=== PATIENT | female | born 1970 | race African-American/Black ===

== ENCOUNTER 2017-09-17 12:48 | Inpatient (IN) ==
[2017-09-17] MEDS ORDERED: hydrALAZINE 20 MG/1 ML VIAL ONE (13:02)
[2017-09-17] MEDS ORDERED: ONDANSETRON 4 MG/2 ML VIAL IV STA (13:04)
[2017-09-17] MEDS ORDERED: METOCLOPRAMIDE 10 MG/2 ML VIAL IV STA (13:04)
[2017-09-17] MEDS ORDERED: INSULIN REGULAR 100 UNIT/ML IV STA (13:04)
[2017-09-17] MEDS ORDERED: SODIUM CHLORIDE 0.9% 2,000 ML IV STA (13:04)
[2017-09-17] MEDS ORDERED: ONDANSETRON 4 MG/2 ML VIAL ONE (13:05)
[2017-09-17] MEDS ORDERED: METOCLOPRAMIDE 10 MG/2 ML VIAL ONE (13:05)
[2017-09-17] MEDS ORDERED: hydrALAZINE 20 MG/1 ML VIAL IV STA (13:13)
[2017-09-17 13:24] LABS: Basophils # 0.1 10*3/uL (0.0-0.2); Basophils % 0.6 % (0.0-0.8); Eosinophils # 0.1 10*3/uL (0.0-0.87); Eosinophils % 0.4 % (0.00-10.9); Hematocrit 33.8 VOL% (35.7-47.0); Hemoglobin 11.8 GM/DL (12.0-16.0); Immature Granulocytes % 0.3 %; Immature Granulocytes Absolute 0.04 #; Lymphocytes # 1.4 10*3/uL (1.4-4.0); Lymphocytes % 10.7 % (21.3-54.2); Mean Corpuscular HGB Conc 34.9 GM/DL (32-36); Mean Corpuscular Hemoglobin 27 PG (27-34); Mean Corpuscular Volume 78.4 FL (87-102); Mean Platelet Volume 12.2 FL (9.6-12.0); Monocytes # 0.4 10*3/uL (0.11-0.8); Monocytes % 3.1 % (1.7-12.7); Neutrophils # 11.3 10*3/uL (1.4-7.4); Neutrophils % 84.9 % (38.7-73.9); Platelet Count 265 T/CUMM (130-400); Red Blood Count 4.31 MC/CUMM (3.8-5.5); Red Cell Distribution Width 12.9 % (9.3-17.3); White Blood Count 13.4 T/CUMM (4-12)
[2017-09-17 13:32] LABS: INR 0.9; PT Patient Result 9.5 SECS; Partial Thromboplastin Time 26.2 SECS (0-40)
[2017-09-17 13:33] LABS: Apearance,Urine Slightly Hazy (Clear); Bacteria,Urine Occasional /HPF (Few); Bilirubin,Urine Negative (Negative); Blood, Urine Small mg/dL (Negative); Glucose,Urine (UA) >=500 mg/dL (Negative); Hyaline Casts,Urine 1 /LPF (0-3); Ketones,Urine Negative (Negative); Mucus,Urine Occasional /LPF (Occasional); Nitrite,Urine Negative (Negative); Protein,Urine >=500 MG/DL; RBC,Urine 12 /HPF (0-4); Squamous Epithelial Cell,Urine Occasional /HPF (0-10); Urine Color Straw (Yellow); Urine Specific Gravity 1.022 (1.001-1.035); Urine Urobilinogen < 2.0 EU/DL (0.2-1.0); WBC,Urine 4 /HPF (0-6)
[2017-09-17 13:40] LABS: Barbiturates Screen,Urine Negative (Negative); Benzodiazepines Screen,Urine Negative (Negative); Cannabinoid Screen,Urine Negative (Negative); Opiate Screen,Urine Negative (Negative); Phencyclidine Screen,Urine Negative (Negative)
[2017-09-17 13:46] LABS: Albumin 1.9 G/DL (3.4-5.0); Bilirubin,Total 0.5 MG/DL (0.2-1.0); CKMB % 2.1 %; Calcium 8.2 MG/DL (8.5-10.1); Osmolality,Calculated 294.5 MOS/KG (273-304); Potassium 3.7 MMOL/L (3.5-5.1); Total Protein 5.8 G/DL (6.4-8.3); Troponin I Only 0.018 NG/ML (0.00-0.045)
[2017-09-17] MEDS ORDERED: INSULIN REGULAR 100 UNIT/ML ONE (13:53)
[2017-09-17] MEDS ORDERED: LEVOFLOXACIN INJ 750 MG in PREMIX 1 EACH IV STA (13:53)
[2017-09-17] MEDS ORDERED: LEVOFLOXACIN INJ 150 ML IV ONE (14:25)
[2017-09-17 14:38] LABS: Allen Test Positive; Pt O2 Delivery Device Room Air
[2017-09-17] MEDS ORDERED: SODIUM BICARB INJ 100 MEQ in STERILE WATER INJ 400 ML IV PRN (14:38)
[2017-09-17] MEDS ORDERED: SODIUM CHLORIDE 0.9% 1,000 ML IV ONE (14:38)
[2017-09-17] MEDS ORDERED: MAGNESIUM SULF RIDER 4 GM in PREMIX 1 EACH IV PRN (14:38)
[2017-09-17] MEDS ORDERED: INSULIN REGULAR 100 UNIT/ML IV ONE (14:38)
[2017-09-17] MEDS ORDERED: MAGNESIUM SULF RIDER 2 GM in PREMIX 1 EACH IV PRN (14:38)
[2017-09-17] MEDS ORDERED: SODIUM PHOSPHATE INJ 19.7 MMOL in SODIUM CHLORIDE 0.9% 250 ML IV PRN (14:38)
[2017-09-17] MEDS ORDERED: DEXTROSE 50% 25 GM/50 ML VIAL IV PRN ×3 (14:38)
[2017-09-17] MEDS ORDERED: GLUCAGON 1 MG VIAL IM PRN (14:38)
[2017-09-17 14:43] LABS: ABG Base Excess -7.8 MMOL/L (-2.5-2.5); ABG HCO3 18.1 MMOL/L (20-26); ABG Oxygen Saturation 99.3 % (95-100); ABG PCO2 28.5 MM HG (35-48); ABG PH 7.367 (7.35-7.45); ABG TCO2 14.7 MMOL/L (23-27)
[2017-09-17] MEDS ORDERED: INSULIN REGULAR DRIP 100 ML IV SCH (15:00)
[2017-09-17 15:19] LABS: Magnesium 1.9 MG/DL (1.8-2.4); Phosphorous 3.9 MG/DL (2.5-4.9)
[2017-09-17] MEDS ORDERED: LABETALOL 20 MG/4 ML SYRINGE IV PRN (15:35)
[2017-09-17] MEDS ORDERED: CARVEDILOL 25 MG TABLET PO SCH (15:35)
[2017-09-17] MEDS: CARVEDILOL 6.25 MG TABLET PO SCH ×2 (16:06→21:00)
[2017-09-17] MEDS: SODIUM CHLORIDE 0.9% 1,000 ML IV SCH ×2 (16:09→20:15)
[2017-09-17] MEDS: ENOXAPARIN 40 MG/0.4 ML SYRINGE SUBCUT SCH (16:27)
[2017-09-17] MEDS: ASPIRIN 325 MG TABLET PO SCH (16:27)
[2017-09-17 16:30] LABS: Osmolality,Calculated 285.1 MOS/KG (273-304); Potassium 3.4 MMOL/L (3.5-5.1)
[2017-09-17] MEDS ORDERED: HALOPERIDOL 5 MG/ML AMP IV PRN ×2 (16:36→16:49)
[2017-09-17] MEDS ORDERED: LORazepam 2 MG/1 ML VIAL IV ONE (16:48)
[2017-09-17] MEDS ORDERED: HYDROmorphone 2 MG/1 ML VIAL IV ONE (16:51)
[2017-09-17] MEDS: LORazepam 2 MG/1 ML VIAL IV SCH ×2 (19:29→20:32)
[2017-09-17] MEDS ORDERED: SODIUM CHLORIDE 0.9% 1,000 ML IV SCH (19:38)
[2017-09-17 21:04] LABS: Calcium 7.2 MG/DL (8.5-10.1); Potassium 3.4 MMOL/L (3.5-5.1)
[2017-09-17] MEDS ORDERED: HALOPERIDOL 5 MG/ML AMP IV ONE (23:38)
[2017-09-17 23:52] LABS: Osmolality,Calculated 282.8 MOS/KG (273-304); Potassium 3.2 MMOL/L (3.5-5.1)
[2017-09-18] MEDS ORDERED: INSULIN ASPART PROTAMINE/ASPART 70/30 100 UNIT/ML SUBCUT ONE (00:09)
[2017-09-18] MEDS: LORazepam 2 MG/1 ML VIAL IV SCH ×2 (01:03→04:20)
[2017-09-18 03:38] LABS: Basophils # 0.1 10*3/uL (0.0-0.2); Basophils % 0.4 % (0.0-0.8); Eosinophils % 0.1 % (0.00-10.9); Hemoglobin 10.1 GM/DL (12.0-16.0); Immature Granulocytes % 0.4 %; Immature Granulocytes Absolute 0.07 #; Lymphocytes % 12.5 % (21.3-54.2); Mean Corpuscular HGB Conc 36.1 GM/DL (32-36); Mean Corpuscular Hemoglobin 28 PG (27-34); Mean Corpuscular Volume 76.7 FL (87-102); Mean Platelet Volume 11.9 FL (9.6-12.0); Monocytes # 0.9 10*3/uL (0.11-0.8); Monocytes % 5.7 % (1.7-12.7); Neutrophils % 80.9 % (38.7-73.9); Platelet Count 232 T/CUMM (130-400); Red Blood Count 3.65 MC/CUMM (3.8-5.5); Red Cell Distribution Width 12.9 % (9.3-17.3)
[2017-09-18 03:43] LABS: Calcium 7.1 MG/DL (8.5-10.1); Osmolality,Calculated 281.8 MOS/KG (273-304); Potassium 3.3 MMOL/L (3.5-5.1)
[2017-09-18] MEDS: POTASSIUM CHLORIDE RIDER 10 MEQ in PREMIX 1 EACH IV PRN ×4 (04:21→11:48)
[2017-09-18 07:11] LABS: Calcium 7.2 MG/DL (8.5-10.1); Osmolality,Calculated 278.2 MOS/KG (273-304); Potassium 3.5 MMOL/L (3.5-5.1)
[2017-09-18 07:18] LABS: Risk Ratio 9.76; VLDL CHOLESTEROL 52.6 MG/DL
[2017-09-18] MEDS ORDERED: INSULIN ASPART PROTAMINE/ASPART 70/30 100 UNIT/ML SUBCUT SCH (07:30)
[2017-09-18] MEDS ORDERED: SODIUM CHLORIDE 0.45% 1,000 ML IV SCH (07:38)
[2017-09-18 07:41] LABS: Magnesium 1.6 MG/DL (1.8-2.4); Phosphorous 1.7 MG/DL (2.5-4.9)
[2017-09-18] MEDS ORDERED: MAGNESIUM SULF RIDER 2 GM in PREMIX 1 EACH IV ONE (08:36)
[2017-09-18] MEDS: CARVEDILOL 6.25 MG TABLET PO SCH (08:42)
[2017-09-18] MEDS: ASPIRIN 325 MG TABLET PO SCH (08:43)
[2017-09-18] MEDS ORDERED: SODIUM CHLORIDE 0.9% 1,000 ML IV SCH ×2 (09:00→12:00)
[2017-09-18] MEDS ORDERED: POTASSIUM PHOSPHATE 30 MMOL in SODIUM CHLORIDE 0.9% 250 ML IV ONE (09:30)
[2017-09-18] MEDS: INSULIN REGULAR 100 UNIT/ML SUBCUT SCH ×4 (09:34→22:06)
[2017-09-18] MEDS ORDERED: NITROGLYCERIN 2% OINT 1 INCH/GM PACK TOP ONE (10:07)
[2017-09-18] MEDS ORDERED: FLUMAZENIL 0.5 MG/5 ML VIAL IV ONE (11:30)
[2017-09-18] MEDS: LORazepam 2 MG/1 ML VIAL IV PRN ×3 (11:48→22:11)
[2017-09-18] MEDS: INSULIN GLARGINE 100 UNIT/ML SUBCUT SCH (11:48)
[2017-09-18] MEDS: PIPERACILLIN/TAZOBACTAM 3,375 MG in SODIUM CHLORIDE 0.9% 100 ML IV SCH ×2 (11:48→17:11)
[2017-09-18 12:58] LABS: HIV Antigen/Antibody Result Nonreactive (Nonreactive); Hepatitis B Surface Ag Quant < 0.10 Index; Hepatitis B Surface Ag Result Negative (Negative); Hepatitis C Virus Ab Quant < 0.02 Index; Hepatitis C Virus Ab Result Negative (Negative)
[2017-09-18] MEDS ORDERED: LORazepam 2 MG/1 ML VIAL IV ONE (15:06)
[2017-09-18] MEDS: ENOXAPARIN 40 MG/0.4 ML SYRINGE SUBCUT SCH (16:18)
[2017-09-18] MEDS: amLODIPine 5 MG TABLET PO SCH (17:10)
[2017-09-19] MEDS: CARVEDILOL 6.25 MG TABLET PO SCH ×3 (00:44→20:26)
[2017-09-19] MEDS: ROSUVASTATIN 20 MG TABLET PO SCH ×2 (00:45→20:26)
[2017-09-19] MEDS: PIPERACILLIN/TAZOBACTAM 3,375 MG in SODIUM CHLORIDE 0.9% 100 ML IV SCH ×2 (01:00→19:36)
[2017-09-19 03:15] LABS: Creatinine 24 Hr Urine Result 1.22 G/24HR (0.60-1.80)
[2017-09-19 03:16] LABS: Creatinine Clearance Urine 36.64 ML/MIN (70-115)
[2017-09-19] MEDS: niCARdipine INJ 25 MG in SODIUM CHLORIDE 0.9% 240 ML IV SCH ×2 (03:17→12:51)
[2017-09-19] MEDS: LORazepam 2 MG/1 ML VIAL IV PRN (03:30)
[2017-09-19 03:40] LABS: Basophils # 0.1 10*3/uL (0.0-0.2); Basophils % 0.3 % (0.0-0.8); Eosinophils # 0.2 10*3/uL (0.0-0.87); Hematocrit 20.8 VOL% (35.7-47.0); Hemoglobin 7.3 GM/DL (12.0-16.0); Immature Granulocytes % 0.5 %; Immature Granulocytes Absolute 0.11 #; Lymphocytes # 3.8 10*3/uL (1.4-4.0); Lymphocytes % 18.3 % (21.3-54.2); Mean Corpuscular HGB Conc 35.1 GM/DL (32-36); Mean Corpuscular Hemoglobin 28 PG (27-34); Mean Corpuscular Volume 79.1 FL (87-102); Mean Platelet Volume 10.9 FL (9.6-12.0); Monocytes # 1.9 10*3/uL (0.11-0.8); Monocytes % 8.9 % (1.7-12.7); Neutrophils # 14.8 10*3/uL (1.4-7.4); Platelet Count 281 T/CUMM (130-400); Red Blood Count 2.63 MC/CUMM (3.8-5.5); Red Cell Distribution Width 13.3 % (9.3-17.3); White Blood Count 20.8 T/CUMM (4-12)
[2017-09-19 03:41] LABS: Collection Time,Urine 24 HOURS; Total Volume,Urine 1250 ML (400-2000)
[2017-09-19 04:32] LABS: Calcium 7.1 MG/DL (8.5-10.1); Potassium 3.7 MMOL/L (3.5-5.1)
[2017-09-19 04:41] LABS: Band Neutrophils 2 % (0-10); Eosinophils 1 % (0-10); Lymphocytes 19 % (20-55); Myelocytes 1 %; Segmented Neutrophils 72 % (50-85)
[2017-09-19 04:43] LABS: Platelet Estimate Adequate; Total Cells Counted 100
[2017-09-19] MEDS: INSULIN REGULAR 100 UNIT/ML SUBCUT SCH ×4 (08:05→20:48)
[2017-09-19] MEDS ORDERED: PNEUMOCOCCAL VACCINE (23 VALENT) 0.5 ML VIAL IM ONE (09:00)
[2017-09-19] MEDS ORDERED: INFLUENZA VIRUS VACCINE 0.5 ML SYRINGE IM ONE (09:00)
[2017-09-19] MEDS: INSULIN GLARGINE 100 UNIT/ML SUBCUT SCH (09:04)
[2017-09-19] MEDS: ASPIRIN 325 MG TABLET PO SCH (09:05)
[2017-09-19] MEDS: amLODIPine 5 MG TABLET PO SCH (09:05)
[2017-09-19] MEDS ORDERED: SODIUM CHLORIDE 0.9% 1,000 ML IV PRN (10:42)
[2017-09-19] MEDS ORDERED: VANCOMYCIN INJ 1,250 MG in SODIUM CHLORIDE 0.45% 250 ML IV ONE (12:00)
[2017-09-19] MEDS ORDERED: VANCOMYCIN INJ 1,250 MG in SODIUM CHLORIDE 0.9% 250 ML IV PRN (13:57)
[2017-09-19 14:02] LABS: Glucose,CSF 78 MG/DL (40-70)
[2017-09-19] MEDS: cefTRIAXone 2,000 MG in SYRINGE 1 EACH IV SCH (14:10)
[2017-09-19] MEDS: ACYCLOVIR INJ 500 MG in SODIUM CHLORIDE 0.9% 100 ML IV SCH (14:11)
[2017-09-19] MEDS: AMPICILLIN INJ 2,000 MG in SODIUM CHLORIDE 0.9% 100 ML IV SCH (14:11)
[2017-09-19 14:13] LABS: Albumin 1.2 G/DL (3.4-5.0); Bilirubin,Total 0.5 MG/DL (0.2-1.0); Calcium 6.9 MG/DL (8.5-10.1); Potassium 3.7 MMOL/L (3.5-5.1); Total Protein 4.1 G/DL (6.4-8.3)
[2017-09-19 14:46] LABS: Appearance,CSF Clear; Red Blood Cell,CSF 6 C/CUMM; White Blood Cell,CSF 10 C/CUMM
[2017-09-19 14:48] LABS: Lymphocytes,CSF 12 %; Neutrophils,CSF 88 %
[2017-09-19] MEDS: ENOXAPARIN 30 MG/0.3 ML SYRINGE SUBCUT SCH (18:12)
[2017-09-19 19:44] LABS: Hematocrit 33.4 VOL% (35.7-47.0)
[2017-09-19 19:53] LABS: Hemoglobin 11.7 GM/DL (12.0-16.0)
[2017-09-19] MEDS: ACETAMINOPHEN 325 MG TABLET PO PRN (20:26)
[2017-09-19] MEDS: ONDANSETRON 4 MG/2 ML VIAL IV PRN (20:27)
[2017-09-20] MEDS: ACYCLOVIR INJ 500 MG in SODIUM CHLORIDE 0.9% 100 ML IV SCH (01:42)
[2017-09-20] MEDS: cefTRIAXone 2,000 MG in SYRINGE 1 EACH IV SCH (01:42)
[2017-09-20] MEDS: AMPICILLIN INJ 2,000 MG in SODIUM CHLORIDE 0.9% 100 ML IV SCH (01:43)
[2017-09-20] MEDS: LORazepam 2 MG/1 ML VIAL IV PRN ×2 (02:24→22:16)
[2017-09-20 04:19] LABS: Anti SS-A Antibodies < 16 EU/ML; Anti SS-B Antibodies < 16 EU/ML
[2017-09-20 04:43] LABS: Basophils # 0.1 10*3/uL (0.0-0.2); Basophils % 0.7 % (0.0-0.8); Eosinophils # 0.3 10*3/uL (0.0-0.87); Eosinophils % 3.2 % (0.00-10.9); Hematocrit 29.1 VOL% (35.7-47.0); Hemoglobin 9.9 GM/DL (12.0-16.0); Immature Granulocytes % 0.4 %; Immature Granulocytes Absolute 0.04 #; Lymphocytes # 2.1 10*3/uL (1.4-4.0); Lymphocytes % 21.6 % (21.3-54.2); Mean Corpuscular Hemoglobin 27 PG (27-34); Mean Corpuscular Volume 80.4 FL (87-102); Mean Platelet Volume 11.9 FL (9.6-12.0); Monocytes # 0.9 10*3/uL (0.11-0.8); Monocytes % 8.7 % (1.7-12.7); Neutrophils # 6.4 10*3/uL (1.4-7.4); Neutrophils % 65.4 % (38.7-73.9); Platelet Count 157 T/CUMM (130-400); Red Blood Count 3.62 MC/CUMM (3.8-5.5); Red Cell Distribution Width 13.2 % (9.3-17.3); White Blood Count 9.9 T/CUMM (4-12)
[2017-09-20 05:11] LABS: Albumin 1.1 G/DL (3.4-5.0); Bilirubin,Total 0.5 MG/DL (0.2-1.0); Calcium 6.8 MG/DL (8.5-10.1); Osmolality,Calculated 280.5 MOS/KG (273-304); Potassium 3.4 MMOL/L (3.5-5.1); Total Protein 3.9 G/DL (6.4-8.3)
[2017-09-20 05:40] LABS: Free T4 (Free Thyroxine) 0.98 NG/DL (0.76-1.46); Thyroid Stimulating Hormone 3.26 uIU/ml (0.358-3.74)
[2017-09-20] MEDS: INSULIN REGULAR 100 UNIT/ML SUBCUT SCH ×4 (07:18→19:59)
[2017-09-20] MEDS: amLODIPine 10 MG TABLET PO SCH (09:23)
[2017-09-20] MEDS: CARVEDILOL 6.25 MG TABLET PO SCH ×2 (09:23→22:08)
[2017-09-20] MEDS: ASPIRIN 325 MG TABLET PO SCH (09:24)
[2017-09-20] MEDS: cefTRIAXone 1,000 MG in SYRINGE 1 EACH IV SCH (09:25)
[2017-09-20] MEDS: INSULIN GLARGINE 100 UNIT/ML SUBCUT SCH (09:26)
[2017-09-20] MEDS: niCARdipine INJ 25 MG in SODIUM CHLORIDE 0.9% 240 ML IV SCH (09:45)
[2017-09-20] MEDS: ENOXAPARIN 30 MG/0.3 ML SYRINGE SUBCUT SCH (17:04)
[2017-09-20] MEDS: ROSUVASTATIN 20 MG TABLET PO SCH (22:08)
[2017-09-21] MEDS: ACETAMINOPHEN 325 MG TABLET PO PRN ×2 (00:53→20:43)
[2017-09-21 07:31] LABS: Basophils # 0.1 10*3/uL (0.0-0.2); Basophils % 0.7 % (0.0-0.8); Eosinophils # 0.4 10*3/uL (0.0-0.87); Eosinophils % 3.9 % (0.00-10.9); Hematocrit 29.8 VOL% (35.7-47.0); Hemoglobin 10.4 GM/DL (12.0-16.0); Immature Granulocytes % 0.3 %; Immature Granulocytes Absolute 0.03 #; Lymphocytes # 2.6 10*3/uL (1.4-4.0); Lymphocytes % 25.6 % (21.3-54.2); Mean Corpuscular HGB Conc 34.9 GM/DL (32-36); Mean Corpuscular Hemoglobin 28 PG (27-34); Mean Corpuscular Volume 79.5 FL (87-102); Mean Platelet Volume 11.7 FL (9.6-12.0); Monocytes # 0.9 10*3/uL (0.11-0.8); Monocytes % 9.3 % (1.7-12.7); Neutrophils % 60.2 % (38.7-73.9); Platelet Count 206 T/CUMM (130-400); Red Blood Count 3.75 MC/CUMM (3.8-5.5); Red Cell Distribution Width 13.4 % (9.3-17.3)
[2017-09-21 08:09] LABS: Calcium 7.1 MG/DL (8.5-10.1); Osmolality,Calculated 281.4 MOS/KG (273-304); Potassium 3.4 MMOL/L (3.5-5.1)
[2017-09-21] MEDS ORDERED: VANCOMYCIN INJ 1,250 MG in SODIUM CHLORIDE 0.45% 250 ML IV ONE (09:00)
[2017-09-21] MEDS: cefTRIAXone 1,000 MG in SYRINGE 1 EACH IV SCH (09:10)
[2017-09-21] MEDS: INSULIN REGULAR 100 UNIT/ML SUBCUT SCH ×4 (09:10→21:16)
[2017-09-21] MEDS: ASPIRIN 325 MG TABLET PO SCH (09:11)
[2017-09-21] MEDS: CARVEDILOL 6.25 MG TABLET PO SCH ×2 (09:11→20:43)
[2017-09-21] MEDS: INSULIN GLARGINE 100 UNIT/ML SUBCUT SCH (09:11)
[2017-09-21] MEDS: amLODIPine 10 MG TABLET PO SCH (09:11)
[2017-09-21] MEDS ORDERED: POTASSIUM CHLORIDE 20 MEQ TABLET PO ONE (13:09)
[2017-09-21 13:41] LABS: CMV PCR Source CSF
[2017-09-21] MEDS: ENOXAPARIN 30 MG/0.3 ML SYRINGE SUBCUT SCH (14:23)
[2017-09-21] MEDS: hydrALAZINE 25 MG TABLET PO SCH ×2 (14:23→20:43)
[2017-09-21 16:54] LABS: Risk Ratio 10.65; VLDL CHOLESTEROL 43.4 MG/DL
[2017-09-21] MEDS: FUROSEMIDE 80 MG TABLET PO SCH (17:43)
[2017-09-21] MEDS: ALUMINUM/MAGNES/SIMETH MAX STR 30 ML UDCUP PO PRN (18:30)
[2017-09-21 20:36] LABS: F5DNA Reviewed By SEE COMMENTS; Factor V Leiden (R506Q) Mutati Negative (Negative); PTNT Reviewed By SEE COMMENTS
[2017-09-21] MEDS: ROSUVASTATIN 20 MG TABLET PO SCH (20:51)
[2017-09-21 21:06] LABS: Enterovirus PCR Source CSF
[2017-09-22] MEDS: ALUMINUM/MAGNES/SIMETH MAX STR 30 ML UDCUP PO PRN ×3 (01:41→20:24)
[2017-09-22 05:55] LABS: Basophils # 0.1 10*3/uL (0.0-0.2); Basophils % 0.5 % (0.0-0.8); Eosinophils # 0.4 10*3/uL (0.0-0.87); Eosinophils % 3.3 % (0.00-10.9); Hematocrit 31.2 VOL% (35.7-47.0); Hemoglobin 10.6 GM/DL (12.0-16.0); Immature Granulocytes % 0.5 %; Immature Granulocytes Absolute 0.06 #; Lymphocytes # 2.2 10*3/uL (1.4-4.0); Lymphocytes % 18.3 % (21.3-54.2); Mean Corpuscular Hemoglobin 28 PG (27-34); Mean Corpuscular Volume 80.8 FL (87-102); Monocytes # 1.1 10*3/uL (0.11-0.8); Monocytes % 8.6 % (1.7-12.7); Neutrophils # 8.4 10*3/uL (1.4-7.4); Neutrophils % 68.8 % (38.7-73.9); Platelet Count 245 T/CUMM (130-400); Red Blood Count 3.86 MC/CUMM (3.8-5.5); Red Cell Distribution Width 13.6 % (9.3-17.3); White Blood Count 12.3 T/CUMM (4-12)
[2017-09-22 06:24] LABS: Calcium 6.9 MG/DL (8.5-10.1); Osmolality,Calculated 284.5 MOS/KG (273-304); Potassium 3.9 MMOL/L (3.5-5.1)
[2017-09-22] MEDS: hydrALAZINE 25 MG TABLET PO SCH ×3 (08:28→21:21)
[2017-09-22] MEDS: CARVEDILOL 6.25 MG TABLET PO SCH ×2 (08:28→21:21)
[2017-09-22] MEDS: ASPIRIN 325 MG TABLET PO SCH (08:28)
[2017-09-22] MEDS: amLODIPine 10 MG TABLET PO SCH (08:28)
[2017-09-22] MEDS: INSULIN REGULAR 100 UNIT/ML SUBCUT SCH ×4 (08:28→21:40)
[2017-09-22] MEDS: FUROSEMIDE 80 MG TABLET PO SCH ×2 (08:28→17:30)
[2017-09-22] MEDS: INSULIN GLARGINE 100 UNIT/ML SUBCUT SCH (08:29)
[2017-09-22] MEDS ORDERED: DIPHENOXYLATE/ATROPINE 2.5-0.025 MG TABLET PO PRN (09:00)
[2017-09-22 10:11] LABS: Phospholipid Ab IgM, S < 9.4 MPL
[2017-09-22] MEDS: ACETAMINOPHEN 325 MG TABLET PO PRN (10:22)
[2017-09-22] MEDS: PANTOPRAZOLE 40 MG TABLET PO SCH (10:57)
[2017-09-22 11:56] LABS: CKMB % 0.5 %; Troponin I Only 0.037 NG/ML (0.00-0.045)
[2017-09-22] MEDS ORDERED: KETOROLAC 10 MG TABLET PO ONE (12:41)
[2017-09-22] MEDS ORDERED: KETOROLAC 30 MG/1 ML VIAL IV ONE (13:01)
[2017-09-22] MEDS: ENOXAPARIN 30 MG/0.3 ML SYRINGE SUBCUT SCH (14:40)
[2017-09-22 14:46] LABS: Adenovirus PCR Negative (Negative); Specimen Source CSF
[2017-09-22] MEDS ORDERED: ALUM/MAG/SIMETH/LIDO VISC 1:1 30 ML BOTTLE PO ONE (16:55)
[2017-09-22] MEDS: FLUCONAZOLE INJ 200 MG in PREMIX 1 EACH IV SCH (18:29)
[2017-09-22] MEDS: ROSUVASTATIN 20 MG TABLET PO SCH (21:21)
[2017-09-23 05:45] LABS: CKMB % 0.4 %; Troponin I Only 0.036 NG/ML (0.00-0.045)
[2017-09-23] MEDS ORDERED: hydrALAZINE 20 MG/1 ML VIAL ONE (09:00)
[2017-09-23] MEDS ORDERED: LABETALOL 100 MG/20 ML VIAL IV ONE (09:00)
[2017-09-23] MEDS ORDERED: LIDOCAINE 2% 5 ML VIAL ONE (09:00)
[2017-09-23] MEDS ORDERED: PROPOFOL 200 MG/20 ML VIAL IV ONE (09:00)
[2017-09-23] MEDS: FUROSEMIDE 80 MG TABLET PO SCH ×2 (11:08→15:31)
[2017-09-23] MEDS: INSULIN REGULAR 100 UNIT/ML SUBCUT SCH ×4 (11:08→21:18)
[2017-09-23] MEDS: ASPIRIN 325 MG TABLET PO SCH ×2 (11:09→15:31)
[2017-09-23] MEDS: INSULIN GLARGINE 100 UNIT/ML SUBCUT SCH (11:09)
[2017-09-23] MEDS: hydrALAZINE 25 MG TABLET PO SCH ×3 (11:09→22:24)
[2017-09-23] MEDS: CARVEDILOL 6.25 MG TABLET PO SCH ×2 (11:09→21:16)
[2017-09-23] MEDS: amLODIPine 10 MG TABLET PO SCH ×2 (11:10→15:31)
[2017-09-23] MEDS: PANTOPRAZOLE 40 MG TABLET PO SCH ×2 (11:10→15:31)
[2017-09-23] MEDS: FLUCONAZOLE INJ 200 MG in PREMIX 1 EACH IV SCH (14:58)
[2017-09-23] MEDS: CALCIUM CARBONATE CHEW 500 MG TABLET PO PRN ×2 (15:31→19:16)
[2017-09-23] MEDS: ACETAMINOPHEN 325 MG TABLET PO PRN (21:14)
[2017-09-23] MEDS: ROSUVASTATIN 20 MG TABLET PO SCH (21:16)
[2017-09-24 05:56] LABS: Basophils # 0.1 10*3/uL (0.0-0.2); Basophils % 0.6 % (0.0-0.8); Eosinophils # 0.5 10*3/uL (0.0-0.87); Hematocrit 31.5 VOL% (35.7-47.0); Hemoglobin 10.7 GM/DL (12.0-16.0); Immature Granulocytes % 0.4 %; Immature Granulocytes Absolute 0.05 #; Lymphocytes # 2.6 10*3/uL (1.4-4.0); Lymphocytes % 20.5 % (21.3-54.2); Mean Corpuscular Hemoglobin 28 PG (27-34); Monocytes % 7.7 % (1.7-12.7); Neutrophils # 8.4 10*3/uL (1.4-7.4); Neutrophils % 66.8 % (38.7-73.9); Platelet Count 282 T/CUMM (130-400); Red Blood Count 3.84 MC/CUMM (3.8-5.5); Red Cell Distribution Width 13.7 % (9.3-17.3); White Blood Count 12.5 T/CUMM (4-12)
[2017-09-24 06:20] LABS: Albumin 1.6 G/DL (3.4-5.0); Bilirubin,Total 0.4 MG/DL (0.2-1.0); Calcium 7.8 MG/DL (8.5-10.1); Osmolality,Calculated 284.3 MOS/KG (273-304); Potassium 4.1 MMOL/L (3.5-5.1); Total Protein 4.7 G/DL (6.4-8.3)
[2017-09-24] MEDS: INSULIN REGULAR 100 UNIT/ML SUBCUT SCH ×4 (07:37→22:24)
[2017-09-24] MEDS: PANTOPRAZOLE 40 MG TABLET PO SCH (10:53)
[2017-09-24] MEDS: hydrALAZINE 25 MG TABLET PO SCH ×3 (10:53→20:06)
[2017-09-24] MEDS: ASPIRIN 325 MG TABLET PO SCH (10:53)
[2017-09-24] MEDS: FUROSEMIDE 80 MG TABLET PO SCH ×2 (10:53→16:35)
[2017-09-24] MEDS: INSULIN GLARGINE 100 UNIT/ML SUBCUT SCH (10:54)
[2017-09-24] MEDS: CARVEDILOL 6.25 MG TABLET PO SCH ×2 (10:54→20:07)
[2017-09-24] MEDS: amLODIPine 10 MG TABLET PO SCH (11:00)
[2017-09-24] MEDS: FLUCONAZOLE INJ 200 MG in PREMIX 1 EACH IV SCH (16:36)
[2017-09-24] MEDS: CALCIUM CARBONATE CHEW 500 MG TABLET PO PRN (18:31)
[2017-09-24] MEDS: ACETAMINOPHEN 325 MG TABLET PO PRN (18:31)
[2017-09-24] MEDS: ONDANSETRON 4 MG/2 ML VIAL IV PRN (20:03)
[2017-09-24] MEDS: ROSUVASTATIN 20 MG TABLET PO SCH (20:06)
[2017-09-25] MEDS: ASPIRIN 325 MG TABLET PO SCH (09:18)
[2017-09-25] MEDS: INSULIN REGULAR 100 UNIT/ML SUBCUT SCH ×4 (09:18→21:47)
[2017-09-25] MEDS: FUROSEMIDE 80 MG TABLET PO SCH ×2 (09:18→17:28)
[2017-09-25] MEDS: amLODIPine 10 MG TABLET PO SCH (09:18)
[2017-09-25] MEDS: CARVEDILOL 6.25 MG TABLET PO SCH ×2 (09:18→21:05)
[2017-09-25] MEDS: hydrALAZINE 25 MG TABLET PO SCH ×3 (09:18→21:06)
[2017-09-25] MEDS: INSULIN GLARGINE 100 UNIT/ML SUBCUT SCH (09:19)
[2017-09-25] MEDS: PANTOPRAZOLE 40 MG TABLET PO SCH (09:19)
[2017-09-25] MEDS: NYSTATIN 500,000 UNIT/5 ML UDCUP SWISH/SWAL SCH ×3 (12:51→21:06)
[2017-09-25] MEDS: FLUCONAZOLE INJ 200 MG in PREMIX 1 EACH IV SCH (14:20)
[2017-09-25] MEDS: ACETAMINOPHEN 325 MG TABLET PO PRN (17:32)
[2017-09-25] MEDS ORDERED: MICONAZOLE 2% VAG CREAM 45 GM TUBE TOP SCH (21:00)
[2017-09-25] MEDS: ROSUVASTATIN 20 MG TABLET PO SCH (21:05)
[2017-09-26 07:09] LABS: Basophils # 0.1 10*3/uL (0.0-0.2); Basophils % 0.6 % (0.0-0.8); Eosinophils # 0.4 10*3/uL (0.0-0.87); Hemoglobin 9.8 GM/DL (12.0-16.0); Immature Granulocytes % 0.8 %; Immature Granulocytes Absolute 0.09 #; Lymphocytes # 2.6 10*3/uL (1.4-4.0); Lymphocytes % 22.1 % (21.3-54.2); Mean Corpuscular HGB Conc 33.8 GM/DL (32-36); Mean Corpuscular Hemoglobin 28 PG (27-34); Mean Corpuscular Volume 82.2 FL (87-102); Mean Platelet Volume 10.7 FL (9.6-12.0); Monocytes # 1.1 10*3/uL (0.11-0.8); Monocytes % 9.4 % (1.7-12.7); Neutrophils # 7.7 10*3/uL (1.4-7.4); Neutrophils % 64.1 % (38.7-73.9); Platelet Count 326 T/CUMM (130-400); Red Blood Count 3.53 MC/CUMM (3.8-5.5); Red Cell Distribution Width 13.8 % (9.3-17.3); White Blood Count 11.9 T/CUMM (4-12)
[2017-09-26 07:41] LABS: Alanine Aminotransferase 27 U/L (13-56); Albumin 1.7 G/DL (3.4-5.0); Alkaline Phosphatase 78 U/L (45-117); Aspartate Amino Transferase 21 U/L (0-37); Bilirubin,Total < 0.39 MG/DL (0.2-1.0); Blood Urea Nitrogen 23 MG/DL (7-18); Glucose 140 MG/DL (74-106); Osmolality,Calculated 282.5 MOS/KG (273-304); Potassium 3.8 MMOL/L (3.5-5.1); Sodium 139 MMOL/L (136-145); Total Protein 4.8 G/DL (6.4-8.3)
[2017-09-26] MEDS ORDERED: FUROSEMIDE 80 MG TABLET PO SCH (09:00)
[2017-09-26] MEDS: hydrALAZINE 25 MG TABLET PO SCH ×2 (09:21→16:14)
[2017-09-26] MEDS: amLODIPine 10 MG TABLET PO SCH (09:21)
[2017-09-26] MEDS: ASPIRIN 325 MG TABLET PO SCH (09:21)
[2017-09-26] MEDS: PANTOPRAZOLE 40 MG TABLET PO SCH (09:21)
[2017-09-26] MEDS: CARVEDILOL 6.25 MG TABLET PO SCH (09:21)
[2017-09-26] MEDS: INSULIN GLARGINE 100 UNIT/ML SUBCUT SCH (09:22)
[2017-09-26] MEDS: INSULIN REGULAR 100 UNIT/ML SUBCUT SCH ×3 (09:22→16:14)
[2017-09-26] MEDS: NYSTATIN 500,000 UNIT/5 ML UDCUP SWISH/SWAL SCH ×3 (09:22→16:14)
[2017-09-26] MEDS: FUROSEMIDE 80 MG TABLET PO SCH (09:34)
[2017-09-26 15:26] VITALS: BP 135/58
[2017-09-27 15:26] LABS: Homocysteine 5 mcmol/L
[2017-09-27 17:16] LABS: DRVVT Screen Ratio 1.3 ratio (0.0 - 1.1)
[2017-10-07 14:11] LABS: Protein C Antigen 189 % (70-150)
== END 2017-09-26 17:09 | disposition home or self-care (01) | DRG 52 ==
LOC: EDBD → EDUNIT# → N.EDINP 12:48 → N.ED 12:48 → OBSVTOIN 14:02 → SUATTDRO 14:02 → N.ICU 14:56 → N.5E 09-20 12:24
PROVIDERS: ADMIT Internal Medicine; ATTEND Internal Medicine Nephrology

== ENCOUNTER 2017-11-28 22:59 | Observation (INO) ==
[2017-11-28] MEDS ORDERED: MORPHINE 2 MG/1 ML SYRINGE IV STA (23:33)
[2017-11-28] MEDS ORDERED: ASPIRIN 325 MG TABLET PO STA (23:33)
[2017-11-28] MEDS ORDERED: METOPROLOL TARTRATE 25 MG TABLET PO STA (23:33)
[2017-11-28] MEDS ORDERED: ALUM/MAG/SIMETH/LIDO VISC 1:1 30 ML BOTTLE PO STA (23:33)
[2017-11-28] MEDS ORDERED: NITROGLYCERIN 2% OINT 1 INCH/GM PACK TOP STA (23:33)
[2017-11-28] MEDS ORDERED: ONDANSETRON 4 MG/2 ML VIAL IV STA (23:33)
[2017-11-28] MEDS ORDERED: ALUM/MAG/SIMETH/LIDO VISC 1:1 30 ML BOTTLE PO ONE (23:58)
[2017-11-28] MEDS ORDERED: NITROGLYCERIN 2% OINT 1 INCH/GM PACK TOP ONE (23:58)
[2017-11-28] MEDS ORDERED: ONDANSETRON 4 MG/2 ML VIAL ONE (23:58)
[2017-11-28] MEDS ORDERED: MORPHINE 2 MG/1 ML SYRINGE ONE (23:58)
[2017-11-28] MEDS ORDERED: METOPROLOL TARTRATE 25 MG TABLET ONE (23:58)
[2017-11-29] MEDS ORDERED: ALBUTEROL/IPRATROPIUM 3 ML NEB RESP TX STA (00:05)
[2017-11-29] MEDS ORDERED: FUROSEMIDE 40 MG/4 ML VIAL IV STA (00:05)
[2017-11-29 00:16] LABS: Basophils # 0.1 10*3/uL (0.0-0.2); Basophils % 0.6 % (0.0-0.8); Eosinophils # 0.5 10*3/uL (0.0-0.87); Eosinophils % 3.3 % (0.00-10.9); Hematocrit 28.6 VOL% (35.7-47.0); Hemoglobin 9.2 GM/DL (12.0-16.0); Immature Granulocytes % 0.7 %; Lymphocytes # 3.5 10*3/uL (1.4-4.0); Lymphocytes % 22.9 % (21.3-54.2); Mean Corpuscular HGB Conc 32.2 GM/DL (32-36); Mean Corpuscular Hemoglobin 27 PG (27-34); Mean Corpuscular Volume 82.9 FL (87-102); Mean Platelet Volume 10.4 FL (9.6-12.0); Monocytes # 1.1 10*3/uL (0.11-0.8); Monocytes % 7.1 % (1.7-12.7); Neutrophils # 9.9 10*3/uL (1.4-7.4); Neutrophils % 65.4 % (38.7-73.9); Platelet Count 368 T/CUMM (130-400); Red Blood Count 3.45 MC/CUMM (3.8-5.5); Red Cell Distribution Width 13.7 % (9.3-17.3); White Blood Count 15.1 T/CUMM (4-12)
[2017-11-29 00:25] LABS: INR 0.9
[2017-11-29 00:38] LABS: Alanine Aminotransferase 16 U/L (13-56); Albumin 1.6 G/DL (3.4-5.0); Alkaline Phosphatase 83 U/L (45-117); Aspartate Amino Transferase 18 U/L (0-37); Bilirubin,Total < 0.39 MG/DL (0.2-1.0); Blood Urea Nitrogen 23 MG/DL (7-18); Calcium 7.9 MG/DL (8.5-10.1); Glucose 218 MG/DL (74-106); Magnesium 1.9 MG/DL (1.8-2.4); Osmolality,Calculated 291.3 MOS/KG (273-304); Potassium 3.6 MMOL/L (3.5-5.1); Sodium 141 MMOL/L (136-145); Total Protein 6.5 G/DL (6.4-8.3)
[2017-11-29] MEDS ORDERED: POTASSIUM CHLORIDE 20 MEQ TABLET PO PRN (01:26)
[2017-11-29] MEDS ORDERED: INSULIN REGULAR 100 UNIT/ML SUBCUT ONE (01:26)
[2017-11-29] MEDS ORDERED: ONDANSETRON 4 MG/2 ML VIAL IV PRN (01:26)
[2017-11-29] MEDS ORDERED: FUROSEMIDE 40 MG/4 ML VIAL ONE (01:41)
[2017-11-29] MEDS ORDERED: ENOXAPARIN 30 MG/0.3 ML SYRINGE ONE (05:44)
[2017-11-29] MEDS: ENOXAPARIN 30 MG/0.3 ML SYRINGE SUBCUT SCH (05:46)
[2017-11-29 06:21] LABS: Apearance,Urine CLEAR (Clear); Bacteria,Urine Occasional /HPF (Few); Bilirubin,Urine Negative (Negative); Blood, Urine Small mg/dL (Negative); Glucose,Urine (UA) 150 mg/dL (Negative); Hyaline Casts,Urine 2 /LPF (0-3); Ketones,Urine Negative (Negative); Mucus,Urine Occasional /LPF (Occasional); Nitrite,Urine Negative (Negative); Protein,Urine >=500 MG/DL; RBC,Urine 2 /HPF (0-4); Squamous Epithelial Cell,Urine Occasional /HPF (0-10); Urine Color Straw (Yellow); Urine Specific Gravity 1.009 (1.001-1.035); Urine Urobilinogen < 2.0 EU/DL (0.2-1.0); WBC,Urine 2 /HPF (0-6)
[2017-11-29 06:28] LABS: Barbiturates Screen,Urine Negative (Negative); Benzodiazepines Screen,Urine Negative (Negative); Cannabinoid Screen,Urine Negative (Negative); Opiate Screen,Urine Positive (Negative); Phencyclidine Screen,Urine Negative (Negative)
[2017-11-29 07:07] LABS: Basophils # 0.1 10*3/uL (0.0-0.2); Basophils % 0.5 % (0.0-0.8); Eosinophils # 0.5 10*3/uL (0.0-0.87); Eosinophils % 3.2 % (0.00-10.9); Hematocrit 27.6 VOL% (35.7-47.0); Hemoglobin 9.2 GM/DL (12.0-16.0); Immature Granulocytes % 0.6 %; Immature Granulocytes Absolute 0.08 #; Lymphocytes # 3.6 10*3/uL (1.4-4.0); Lymphocytes % 24.5 % (21.3-54.2); Mean Corpuscular HGB Conc 33.3 GM/DL (32-36); Mean Corpuscular Hemoglobin 27 PG (27-34); Mean Corpuscular Volume 82.1 FL (87-102); Mean Platelet Volume 10.3 FL (9.6-12.0); Monocytes # 1.1 10*3/uL (0.11-0.8); Monocytes % 7.4 % (1.7-12.7); Neutrophils # 9.3 10*3/uL (1.4-7.4); Neutrophils % 63.8 % (38.7-73.9); Platelet Count 341 T/CUMM (130-400); Red Blood Count 3.36 MC/CUMM (3.8-5.5); Red Cell Distribution Width 13.8 % (9.3-17.3); White Blood Count 14.5 T/CUMM (4-12)
[2017-11-29 07:24] LABS: Calcium 7.6 MG/DL (8.5-10.1); Osmolality,Calculated 288.1 MOS/KG (273-304); Potassium 3.9 MMOL/L (3.5-5.1); VLDL CHOLESTEROL 32.4 MG/DL
[2017-11-29] MEDS: ASPIRIN EC 325 MG TABLET PO SCH (10:36)
[2017-11-29] MEDS: NITROGLYCERIN 2% OINT 1 INCH/GM PACK TOP SCH ×2 (13:21→14:02)
[2017-11-29] MEDS ORDERED: INFLUENZA VIRUS VACCINE 0.5 ML SYRINGE IM ONE (14:00)
[2017-11-29] MEDS: busPIRone 5 MG TABLET PO SCH ×2 (14:35→21:28)
[2017-11-29] MEDS ORDERED: hydrALAZINE 20 MG/1 ML VIAL IV PRN (14:38)
[2017-11-29] MEDS ORDERED: KETOROLAC 30 MG/1 ML VIAL IV ONE (14:39)
[2017-11-29] MEDS: CARVEDILOL 6.25 MG TABLET PO SCH ×2 (14:39→21:28)
[2017-11-29] MEDS: OMEGA 3 ACID ETHYL ESTERS 1 GM CAPSULE PO SCH ×2 (16:23→21:27)
[2017-11-29] MEDS: BENZONATATE 100 MG CAPSULE PO PRN ×2 (16:23→23:44)
[2017-11-29] MEDS: PANTOPRAZOLE 40 MG TABLET PO SCH (16:23)
[2017-11-29] MEDS: INSULIN NPH 100 UNIT/ML SUBCUT SCH (16:24)
[2017-11-29] MEDS: AZITHROMYCIN 250 MG TABLET PO SCH (16:39)
[2017-11-29] MEDS ORDERED: CARVEDILOL 6.25 MG TABLET PO SCH (21:00)
[2017-11-29] MEDS ORDERED: ROSUVASTATIN 20 MG TABLET PO SCH (21:00)
[2017-11-29] MEDS ORDERED: CYCLOBENZAPRINE 10 MG TABLET PO SCH (21:00)
[2017-11-30] MEDS: ENOXAPARIN 30 MG/0.3 ML SYRINGE SUBCUT SCH (02:06)
[2017-11-30] MEDS: INSULIN NPH 100 UNIT/ML SUBCUT SCH (09:22)
[2017-11-30] MEDS: PANTOPRAZOLE 40 MG TABLET PO SCH (09:26)
[2017-11-30] MEDS: OMEGA 3 ACID ETHYL ESTERS 1 GM CAPSULE PO SCH (09:26)
[2017-11-30] MEDS: CARVEDILOL 6.25 MG TABLET PO SCH (09:26)
[2017-11-30] MEDS: AZITHROMYCIN 250 MG TABLET PO SCH (09:26)
[2017-11-30] MEDS: busPIRone 5 MG TABLET PO SCH (09:26)
[2017-11-30] MEDS: ASPIRIN EC 325 MG TABLET PO SCH (09:26)
[2017-11-30] MEDS: BENZONATATE 100 MG CAPSULE PO PRN (09:40)
[2017-11-30 12:21] VITALS: BP 154/75
== END 2017-11-30 16:21 | disposition home or self-care (01) ==
LOC: EDUNIT# → EDBD → N.EDINP 22:59 → N.ED 22:59 → SUATTDRO 11-29 01:26 → N.EDINP 11-29 12:44 → N.TELES 11-29 13:00
PROVIDERS: ADMIT Hospitalist; ATTEND Internal Medicine Cardiovascular Disease

== ENCOUNTER 2021-06-03 11:00 | Inpatient (IN) ==
[2021-06-03 12:31] LABS: Basophils % 0.1 % (0.0-0.8); Eosinophils % 0.1 % (0.00-10.9); Hematocrit 47.7 VOL% (35.7-47.0); Hemoglobin 14.9 GM/DL (12.0-16.0); Immature Granulocytes % 1.5 %; Immature Granulocytes Absolute 0.13 #; Lymphocytes # 0.7 10*3/uL (1.4-4.0); Lymphocytes % 7.9 % (21.3-54.2); Mean Corpuscular HGB Conc 31.2 GM/DL (32-36); Mean Corpuscular Volume 90.9 FL (87-102); Mean Platelet Volume 10.9 FL (9.6-12.0); Monocytes % 1.9 % (1.7-12.7); Neutrophils % 88.5 % (38.7-73.9); Platelet Count 173 T/CUMM (130-400); Red Blood Count 5.25 MC/CUMM (3.8-5.5); Red Cell Distribution Width 15.3 % (9.3-17.3); White Blood Count 8.6 T/CUMM (4-12)
[2021-06-03 13:25] LABS: Albumin 3.7 G/DL (3.4-5.0); Bilirubin,Total 0.6 MG/DL (0.20-1.00); Calcium 10.1 MG/DL (8.5-10.1); Osmolality,Calculated 277.7 MOS/KG (273-304); Potassium 3.4 MMOL/L (3.5-5.1)
[2021-06-03 13:31] LABS: ABG HCO3 27.8 MMOL/L (20-26); ABG Oxygen Saturation 90.2 % (95-100); ABG PCO2 43.2 MM HG (35-48); ABG PH 7.426 (7.35-7.45); ABG PO2 57.9 MM HG (80-95); ABG TCO2 29.1 MMOL/L (23-27)
[2021-06-03] MEDS ORDERED: cefTRIAXone 1,000 MG in SODIUM CHLORIDE 0.9% 100 ML IV STA (14:31)
[2021-06-03] MEDS ORDERED: ONDANSETRON 4 MG/2 ML VIAL IV PRN (14:42)
[2021-06-03] MEDS ORDERED: ACETAMINOPHEN 325 MG TABLET PO PRN (14:42)
[2021-06-03] MEDS ORDERED: ALBUTEROL 2.5 MG/3 ML NEB RESP TX PRN (14:42)
[2021-06-03] MEDS ORDERED: GLUCAGON 1 MG VIAL IM PRN (15:07)
[2021-06-03] MEDS ORDERED: DEXTROSE 50% 25 GM/50 ML VIAL IV PRN (15:07)
[2021-06-03] MEDS ORDERED: ASPIRIN 325 MG TABLET PO STA (15:08)
[2021-06-03] MEDS: HEPARIN 5,000 UNIT/1 ML VIAL SUBCUT SCH ×2 (15:49→23:13)
[2021-06-03] MEDS: PANTOPRAZOLE 40 MG VIAL IV SCH (15:50)
[2021-06-03 16:29] LABS: Ferritin 33072.7 ng/ml (8-252)
[2021-06-03 16:51] LABS: INR 1.1; PT Patient Result 12.8 SECS (10.5-12.0)
[2021-06-03] MEDS: INSULIN REGULAR 100 UNIT/ML SUBCUT SCH ×2 (20:10→23:13)
[2021-06-03] MEDS: MORPHINE 2 MG/1 ML SYRINGE IV PRN (21:07)
[2021-06-04 01:48] LABS: Basophils % 0.1 % (0.0-0.8); Eosinophils # 0.1 10*3/uL (0.0-0.87); Eosinophils % 0.7 % (0.00-10.9); Hematocrit 38.9 VOL% (35.7-47.0); Hemoglobin 12.3 GM/DL (12.0-16.0); Immature Granulocytes % 0.4 %; Immature Granulocytes Absolute 0.05 #; Lymphocytes # 0.9 10*3/uL (1.4-4.0); Lymphocytes % 7.2 % (21.3-54.2); Mean Corpuscular HGB Conc 31.6 GM/DL (32-36); Mean Corpuscular Volume 90.7 FL (87-102); Mean Platelet Volume 10.7 FL (9.6-12.0); Monocytes % 7.5 % (1.7-12.7); Neutrophils % 84.1 % (38.7-73.9); Platelet Count 148 T/CUMM (130-400); Red Blood Count 4.29 MC/CUMM (3.8-5.5); Red Cell Distribution Width 15.2 % (9.3-17.3); White Blood Count 12.7 T/CUMM (4-12)
[2021-06-04 02:17] LABS: Albumin 3.1 G/DL (3.4-5.0); Bilirubin,Total 0.7 MG/DL (0.20-1.00); Calcium 9.1 MG/DL (8.5-10.1); Osmolality,Calculated 279.7 MOS/KG (273-304); Potassium 3.9 MMOL/L (3.5-5.1)
[2021-06-04 02:28] LABS: Risk Ratio 3.81; VLDL Cholesterol 11.8 MG/DL
[2021-06-04] MEDS: MORPHINE 2 MG/1 ML SYRINGE IV PRN ×2 (04:30→20:25)
[2021-06-04] MEDS: INSULIN REGULAR 100 UNIT/ML SUBCUT SCH ×3 (05:04→20:23)
[2021-06-04 05:09] LABS: Hepatitis B Core IgM Quant 0.07 Index; Hepatitis B Surface Ag Quant < 0.10 Index; Hepatitis B Surface Ag Result Non-Reactive (NonReactive); Hepatitis C Virus Ab Quant 0.06 Index; Hepatitis C Virus Ab Result Non-Reactive (NonReactive)
[2021-06-04 05:58] LABS: Albumin 3.3 G/DL (3.4-5.0); Bilirubin,Direct 0.12 MG/DL (0.0-0.20); Bilirubin,Indirect 0.8 MG/DL (0.0-1.0); Bilirubin,Total 0.9 MG/DL (0.20-1.00)
[2021-06-04] MEDS: ASPIRIN 325 MG TABLET PO SCH (09:04)
[2021-06-04] MEDS: carvediloL 25 MG TABLET PO SCH ×2 (09:04→20:25)
[2021-06-04] MEDS: HEPARIN 5,000 UNIT/1 ML VIAL SUBCUT SCH ×3 (09:05→22:32)
[2021-06-04] MEDS: PANTOPRAZOLE 40 MG VIAL IV SCH (16:54)
[2021-06-05] MEDS: INSULIN REGULAR 100 UNIT/ML SUBCUT SCH ×5 (00:14→23:20)
[2021-06-05] MEDS: carvediloL 25 MG TABLET PO SCH ×3 (09:39→20:59)
[2021-06-05] MEDS: HEPARIN 5,000 UNIT/1 ML VIAL SUBCUT SCH ×3 (09:39→23:59)
[2021-06-05] MEDS: ASPIRIN 325 MG TABLET PO SCH (09:39)
[2021-06-05] MEDS: PANTOPRAZOLE 40 MG VIAL IV SCH (14:22)
[2021-06-05] MEDS ORDERED: HEPARIN 10,000 UNIT/10 ML VIAL IV PRN (15:20)
[2021-06-06] MEDS: INSULIN REGULAR 100 UNIT/ML SUBCUT SCH ×2 (05:58→12:07)
[2021-06-06 07:02] LABS: Basophils # 0.1 10*3/uL (0.0-0.2); Basophils % 0.6 % (0.0-0.8); Eosinophils # 0.5 10*3/uL (0.0-0.87); Eosinophils % 5.5 % (0.00-10.9); Hematocrit 36.6 VOL% (35.7-47.0); Hemoglobin 11.5 GM/DL (12.0-16.0); Immature Granulocytes % 0.4 %; Immature Granulocytes Absolute 0.03 #; Lymphocytes # 1.3 10*3/uL (1.4-4.0); Lymphocytes % 15.2 % (21.3-54.2); Mean Corpuscular HGB Conc 31.4 GM/DL (32-36); Mean Platelet Volume 11.8 FL (9.6-12.0); Monocytes % 10.2 % (1.7-12.7); Neutrophils % 68.1 % (38.7-73.9); Platelet Count 149 T/CUMM (130-400); Red Blood Count 3.98 MC/CUMM (3.8-5.5); Red Cell Distribution Width 15.3 % (9.3-17.3); White Blood Count 8.2 T/CUMM (4-12)
[2021-06-06 07:33] LABS: Osmolality,Calculated 280.5 MOS/KG (273-304); Potassium 3.8 MMOL/L (3.5-5.1)
[2021-06-06 07:37] LABS: Albumin 3.8 G/DL (3.4-5.0); Bilirubin,Direct 0.15 MG/DL (0.0-0.20); Bilirubin,Indirect 0.9 MG/DL (0.0-1.0); Total Protein 7.9 G/DL (6.4-8.2)
[2021-06-06] MEDS: ASPIRIN 325 MG TABLET PO SCH (08:24)
[2021-06-06] MEDS: MORPHINE 2 MG/1 ML SYRINGE IV PRN ×2 (08:24→12:36)
[2021-06-06] MEDS: carvediloL 25 MG TABLET PO SCH (08:24)
[2021-06-06] MEDS: HEPARIN 5,000 UNIT/1 ML VIAL SUBCUT SCH ×2 (08:27→15:25)
[2021-06-06] MEDS: PANTOPRAZOLE 40 MG VIAL IV SCH (15:25)
[2021-06-06 16:24] VITALS: BP 172/60
== END 2021-06-06 16:30 | DRG 91 ==
LOC: EDBD → EDUNIT# → N.ED 11:00 → N.EDINP 14:43 → SUATTDRO 14:43 → N.ICU 19:05 → N.TELEN 06-04 09:38
PROVIDERS: ADMIT Internal Medicine; ATTEND Phlebology